=== PATIENT | female | born 1990 | race Caucasian/White ===

== ENCOUNTER 2018-01-04 21:33 | Emergency (ER) | payer BC ==
[2018-01-04] MEDS ORDERED: Sodium Chloride 0.9% 2.5 ML Syringe FLUSH PRN (21:53)
[2018-01-04] MEDS ORDERED: Ketorolac 30 MG/ML SDV IVPUSH ONE (21:53)
[2018-01-04] MEDS ORDERED: Sodium Chloride 0.9% 10 ML Syringe FLUSH PRN (21:53)
--- NOTE | 2018-01-04 21:58 | EDM.PDOC ---
ED HPI GENERAL MEDICAL PROBLEM - General Chief Complaint: Genitourinary Problem Stated Complaint: BACK AND STOMCH PAIN Time Seen by Provider: 01/04/18 21:45 - History of Present Illness INITIAL COMMENTS - FREE TEXT/NARRATIVE: HISTORY AND PHYSICAL: History of present illness: The patient is a 27 y/o female who presents with complaints of diffuse lower abdominal pain and lower back pain has been ongoing for a couple of days. The patient says that that she was seen in a walk-in clinic about 10 days or so ago for a sinus infection and she was given Cefdnir which she took for 7 days and although her sinus infection was not feeling better she stopped the antibiotics because she got a bad yeast infection. The patient says she used over-the- counter medications for the yeast infection and that has improved. She said over the last 2 days she has been having severe discomfort with urination and that there is burning at the and and she is concerned about a UTI. The discomfort in the lower abdomen and the lower back started with a urinary complaints. She has no flank pain no fevers but she has had chills and no nausea vomiting or upper abdominal pain. Today she did take 2 tablets of her antibiotics she thought it might help and her mother did give her a dose of Tylenol earlier. She is not taking any other medications for pain over the last few days. She says she feels uncomfortable due to the discomfort but does not localize right or left. She has no chest pain shortness of breath or upper respiratory symptoms. Patient tells me she is on oral control and denies . Patient also denies any vaginal discharge or vaginal pain at this moment Review of systems: As per history of present illness and below otherwise all systems reviewed and negative. Past medical history: As per history of present illness and as reviewed below otherwise noncontributory. Surgical history: As per history of present illness and as reviewed below otherwise noncontributory. Social history: No reported history of drug or alcohol abuse. Family history: As per history of present illness and as reviewed below otherwise noncontributory. Physical exam: General: Well-developed well-nourished female who is nontoxic and vital signs are reviewed by me. The patient looks uncomfortable sitting in a chair and she feels like she can't get comfortable. And she is squirming around but she is moving easily without distress HEENT: Atraumatic, normocephalic, negative for conjunctival pallor or scleral icterus, mucous membranes moist, throat clear, neck supple, nontender, trachea midline. Lungs: Clear to auscultation, breath sounds equal bilaterally, chest nontender. Heart: S1S2, regular rate and rhythm no overt murmurs Abdomen: Soft, nondistended, there is some mild tenderness with palpation of the lower abdomen without any focal area right or left and there is no rebound or guarding.. Negative for masses or hepatosplenomegaly. Negative for costovertebral tenderness. Pelvis: Stable nontender. Genitourinary: Deferred. Rectal: Deferred. Extremities: Atraumatic, negative for cords or calf pain. Neurovascular unremarkable. Neuro: Awake, alert, oriented. Cranial nerves II through XII unremarkable. Cerebellum unremarkable. Motor and sensory unremarkable throughout. Exam nonfocal. Back: There are no midline step-offs in his defects of the thoracic or lumbar spine no posterior pelvis or rib pain and no discrete one area of tenderness. When I palpate the lower back that is where she says it is uncomfortable but there is no CVA tenderness. Diagnostics: CBC CMP UA urine culture UCG lactic acid blood culture 2 Therapeutics: IV, Toradol IV fluids Levaquin I discussed with the patient and mother at bedside all testing results and have offered a CT scan to ascertain if there is any other renal abnormalities other than the pyelonephritis. At this point because she has no fever nausea or vomiting and she is feeling improved with the Toradol they would like to defer the CAT scan. I strongly advised him on reasons to return to the ED and will give a dose of Levaquin here and follow-up in our family practice clinic. Impression: Pyelonephritis Definitive disposition and diagnosis as appropriate pending reevaluation and review of above. Lower back pain Pain Score (Numeric/FACES): 10 - Related Data Allergies Allergy/AdvReac Type Severity Reaction Status Date / Time No Known Allergies Allergy Verified 01/04/18 21:45 Home Meds: Home Meds Norethindrone AC-Eth Estradiol [] 1 each PO DAILY 01/04/18 [History] Social & Family History - Family History Family Medical History: Noncontributory - Tobacco Use Smoking Status *Q: Never Smoker - Recreational Drug Use Recreational Drug Use: No ED ROS GENERAL - Review of Systems Review Of Systems: ROS reveals no pertinent complaints other than HPI. ED EXAM, GENERAL - Physical Exam Exam: See Below (see Dictation) Course - Vital Signs Last Recorded V/S: Last Vital Signs Temp 37.1 C 01/04/18 21:46 Pulse 103 H 01/04/18 21:46 Resp 16 01/04/18 21:46 BP 104/41 L 01/04/18 21:46 Pulse Ox 99 01/04/18 21:46 - Orders/Labs/Meds Orders: Active Orders 24 hr Category Date Time Status CULTURE BLOOD [BC] Stat Lab 01/04/18 22:52 Received CULTURE BLOOD [BC] Stat Lab 01/04/18 22:57 Received CULTURE URINE [RM] Stat Lab 01/04/18 21:42 Received Levofloxacin/Dextrose 5%-Water [Levaquin in D5W 500 MG/ Med 01/04/18 22:41 Active 100 ML] 500 mg Premix Bag 1 bag IV ONETIME Sodium Chloride 0.9% [Normal Saline] 1,000 ml Med 01/04/18 22:41 Active IV STAT Sodium Chloride 0.9% [Saline Flush] Med 01/04/18 21:53 Active 10 ml FLUSH ASDIRECTED PRN Sodium Chloride 0.9% [Saline Flush] Med 01/04/18 21:53 Active 2.5 ml FLUSH ASDIRECTED PRN Blood Culture x2 Reflex Set [OM.PC] Stat Oth 01/04/18 22:43 Ordered Saline Lock Insert [OM.PC] Stat Oth 01/04/18 21:52 Ordered Medication Orders Levofloxacin/Dextrose 500 mg/ (Premix) 100 mls @ 100 mls/hr IV ONETIME ONE Stop: 01/04/18 23:40 Last Admin: 01/04/18 23:01 Dose: 100 mls/hr Sodium Chloride (Normal Saline) 1,000 mls @ 999 mls/hr IV STAT ONE Stop: 01/04/18 23:41 Last Admin: 01/04/18 23:01 Dose: 999 mls/hr Sodium Chloride (Saline Flush) 10 ml FLUSH ASDIRECTED PRN PRN Reason: Keep Vein Open Last Admin: 01/04/18 22:13 Dose: 10 ml Sodium Chloride (Saline Flush) 2.5 ml FLUSH ASDIRECTED PRN PRN Reason: Keep Vein Open Last Admin: 01/04/18 22:13 Dose: 2.5 ml Labs: Laboratory Tests 01/04/18 01/04/18 01/04/18 Range/Units 21:42 21:54 22:12 WBC 17.28 H (4.0-11.0) K/uL RBC 4.30 (4.30-5.90) M/uL Hgb 13.0 (12.0-16.0) g/dL Hct 38.1 (36.0-46.0) % MCV 88.6 (80.0-98.0) fL MCH 30.2 (27.0-32.0) pg MCHC 34.1 (31.0-37.0) g/dL RDW Std Deviation 39.9 (28.0-62.0) fl RDW Coeff of Castro 12 (11.0-15.0) % Plt Count 222 (150-400) K/uL MPV 10.10 (7.40-12.00) fL Neut % (Auto) 74.9 (48.0-80.0) % Lymph % (Auto) 16.0 (16.0-40.0) % Routt % (Auto) 8.8 (0.0-15.0) % Eos % (Auto) 0.2 (0.0-7.0) % Baso % (Auto) 0.1 (0.0-1.5) % Neut # (Auto) 12.9 H (1.4-5.7) K/uL Lymph # (Auto) 2.8 H (0.6-2.4) K/uL Routt # (Auto) 1.5 H (0.0-0.8) K/uL Eos # (Auto) 0.0 (0.0-0.7) K/uL Baso # (Auto) 0.0 (0.0-0.1) K/uL Nucleated RBC % 0.0 /100WBC Nucleated RBCs # 0 K/uL Lactate (0.20-2.00) mmol/L Sodium (136-145) mmol/L Potassium (3.5-5.1) mmol/L Chloride (98-107) mmol/L Carbon Dioxide (21.0-32.0) mmol/L BUN (7.0-18.0) mg/dL Creatinine (0.6-1.0) mg/dL Est Cr Clr Drug Dosing mL/min Estimated GFR (MDRD) ml/min Glucose (74-106) mg/dL Calcium (8.5-10.1) mg/dL Total Bilirubin (0.2-1.0) mg/dL AST (15-37) IU/L ALT (14-63) IU/L Alkaline Phosphatase (46-116) U/L Total Protein (6.4-8.2) g/dL Albumin (3.4-5.0) g/dL Globulin (2.0-3.5) g/dL Albumin/Globulin Ratio (1.3-2.8) Urine Color YELLOW Urine Appearance CLOUDY Urine pH 6.5 (5.0-8.0) Ur Specific Blackwell 1.010 (1.001-1.035) Urine Protein 30 (NEGATIVE) mg/dL Urine Glucose (UA) NEGATIVE (NEGATIVE) mg/dL Urine Ketones NEGATIVE (NEGATIVE) mg/dL Urine Occult Blood LARGE H (NEGATIVE) Urine Nitrite NEGATIVE (NEGATIVE) Urine Bilirubin NEGATIVE (NEGATIVE) Urine Urobilinogen 0.2 (<2.0) EU/dL Ur Leukocyte Esterase MODERATE (NEGATIVE) Urine RBC 20-25 (0-2/HPF) Urine WBC 25-30 (0-5/HPF) Ur Epithelial Cells OCCASIONAL (NONE-FEW) Urine Bacteria 1+ H (NEGATIVE) Urine HCG, Qual NEGATIVE (NEGATIVE) 01/04/18 01/04/18 Range/Units 22:12 22:12 WBC (4.0-11.0) K/uL RBC (4.30-5.90) M/uL Hgb (12.0-16.0) g/dL Hct (36.0-46.0) % MCV (80.0-98.0) fL MCH (27.0-32.0) pg MCHC (31.0-37.0) g/dL RDW Std Deviation (28.0-62.0) fl RDW Coeff of Castro (11.0-15.0) % Plt Count (150-400) K/uL MPV (7.40-12.00) fL Neut % (Auto) (48.0-80.0) % Lymph % (Auto) (16.0-40.0) % Routt % (Auto) (0.0-15.0) % Eos % (Auto) (0.0-7.0) % Baso % (Auto) (0.0-1.5) % Neut # (Auto) (1.4-5.7) K/uL Lymph # (Auto) (0.6-2.4) K/uL Routt # (Auto) (0.0-0.8) K/uL Eos # (Auto) (0.0-0.7) K/uL Baso # (Auto) (0.0-0.1) K/uL Nucleated RBC % /100WBC Nucleated RBCs # K/uL Lactate 0.9 (0.20-2.00) mmol/L Sodium 138 (136-145) mmol/L Potassium 3.8 (3.5-5.1) mmol/L Chloride 103 (98-107) mmol/L Carbon Dioxide 24.4 (21.0-32.0) mmol/L BUN 11 (7.0-18.0) mg/dL Creatinine 0.9 (0.6-1.0) mg/dL Est Cr Clr Drug Dosing 95.55 mL/min Estimated GFR (MDRD) > 60.0 ml/min Glucose 98 (74-106) mg/dL Calcium 8.8 (8.5-10.1) mg/dL Total Bilirubin 0.2 (0.2-1.0) mg/dL AST 13 L (15-37) IU/L ALT 31 (14-63) IU/L Alkaline Phosphatase 58 (46-116) U/L Total Protein 6.8 (6.4-8.2) g/dL Albumin 3.6 (3.4-5.0) g/dL Globulin 3.2 (2.0-3.5) g/dL Albumin/Globulin Ratio 1.1 L (1.3-2.8) Urine Color Urine Appearance Urine pH (5.0-8.0) Ur Specific Blackwell (1.001-1.035) Urine Protein (NEGATIVE) mg/dL Urine Glucose (UA) (NEGATIVE) mg/dL Urine Ketones (NEGATIVE) mg/dL Urine Occult Blood (NEGATIVE) Urine Nitrite (NEGATIVE) Urine Bilirubin (NEGATIVE) Urine Urobilinogen (<2.0) EU/dL Ur Leukocyte Esterase (NEGATIVE) Urine RBC (0-2/HPF) Urine WBC (0-5/HPF) Ur Epithelial Cells (NONE-FEW) Urine Bacteria (NEGATIVE) Urine HCG, Qual (NEGATIVE) Meds: Medications Generic Name Dose Route Start Last Admin Trade Name Yordyq PRN Reason Stop Dose Admin Levofloxacin/Dextrose 500 mg/ 100 mls @ 100 mls/hr 01/04/18 22:41 01/04/18 23 :01 Premix IV 01/04/18 23:40 100 mls/hr ONETIME ONE Administration Sodium Chloride 1,000 mls @ 999 mls/hr 01/04/18 22:41 01/04/18 23:01 Normal Saline IV 01/04/18 23:41 999 mls/hr STAT ONE Administration Sodium Chloride 10 ml 01/04/18 21:53 01/04/18 22:13 Saline Flush FLUSH 10 ml ASDIRECTED PRN Administration Keep Vein Open Sodium Chloride 2.5 ml 01/04/18 21:53 01/04/18 22:13 Saline Flush FLUSH 2.5 ml ASDIRECTED PRN Administration Keep Vein Open Discontinued Medications Generic Name Dose Route Start Last Admin Trade Name Dena PRN Reason Stop Dose Admin Ketorolac Tromethamine 30 mg 01/04/18 21:53 01/04/18 22:13 Toradol IVPUSH 01/04/18 21:54 30 mg ONETIME ONE Administration Departure - Departure Time of Disposition: 23:03 Disposition: Home, Self-Care 01 Condition: Good Clinical Impression: Pyelonephritis - Discharge Information Referrals: PCP,None [Primary Care Provider] - Forms: ED Department Discharge Additional Instructions: The following information is given to patients seen in the emergency department who are being discharged to home. This information is to outline your options for follow-up care. We provide all patients seen in our emergency department with a follow-up referral. The need for follow-up, as well as the timing and circumstances, are variable depending upon the specifics of your emergency department visit. If you don't have a primary care physician on staff, we will provide you with a referral. We always advise you to contact your personal physician following an emergency department visit to inform them of the circumstance of the visit and for follow-up with them and/or the need for any referrals to a consulting specialist. The emergency department will also refer you to a specialist when appropriate. This referral assures that you have the opportunity for followup care with a specialist. All of these measure are taken in an effort to provide you with optimal care, which includes your followup. Under all circumstances we always encourage you to contact your private physician who remains a resource for coordinating your care. When calling for followup care, please make the office aware that this follow-up is from your recent emergency room visit. If for any reason you are refused follow-up, please contact the [facility] emergency department at and ask to speak to the emergency department charge nurse. [facility] Primary care- [place] [address] Push hydration and rest. Please call the clinic in the morning and schedule a follow-up in the family practice residency clinic or the family practice clinic as we discussed for reevaluation of the pyelonephritis as well as your concerns about other medical issues in the past. You can start your antibiotics tomorrow as you have received a dose of IV here that will last 2 for 24 hours. Please return to ER as needed and as we discussed. If the urine culture or blood cultures reveal anything that will change the care plan we will call you in the next few days. - My Orders Last 24 Hours: My Active Orders 01/04/18 21:42 CULTURE URINE [RM] Stat 01/04/18 21:52 Saline Lock Insert [OM.PC] Stat 01/04/18 21:53 Sodium Chloride 0.9% [Saline Flush] 10 ml FLUSH ASDIRECTED PRN Sodium Chloride 0.9% [Saline Flush] 2.5 ml FLUSH ASDIRECTED PRN 01/04/18 22:41 Levofloxacin/Dextrose 5%-Water [Levaquin in D5W 500 MG/100 ML] 500 mg Premix Bag 1 bag IV ONETIME Sodium Chloride 0.9% [Normal Saline] 1,000 ml IV STAT 01/04/18 22:43 Blood Culture x2 Reflex Set [OM.PC] Stat 01/04/18 22:52 CULTURE BLOOD [BC] Stat 01/04/18 22:57 CULTURE BLOOD [BC] Stat - Assessment/Plan Last 24 Hours: My Active Orders 01/04/18 21:42 CULTURE URINE [RM] Stat 01/04/18 21:52 Saline Lock Insert [OM.PC] Stat 01/04/18 21:53 Sodium Chloride 0.9% [Saline Flush] 10 ml FLUSH ASDIRECTED PRN Sodium Chloride 0.9% [Saline Flush] 2.5 ml FLUSH ASDIRECTED PRN 01/04/18 22:41 Levofloxacin/Dextrose 5%-Water [Levaquin in D5W 500 MG/100 ML] 500 mg Premix Bag 1 bag IV ONETIME Sodium Chloride 0.9% [Normal Saline] 1,000 ml IV STAT 01/04/18 22:43 Blood Culture x2 Reflex Set [OM.PC] Stat 01/04/18 22:52 CULTURE BLOOD [BC] Stat 01/04/18 22:57 CULTURE BLOOD [BC] Stat
[2018-01-04] MEDS ORDERED: Levofloxacin/Dextrose 5%-Water 500 MG in Premix Bag 1 BAG IV ONE (22:41)
[2018-01-04] MEDS ORDERED: Sodium Chloride 0.9% 1,000 ML IV ONE (22:41)
[2018-01-04 22:52] LABS: CHLORIDE,CL 103 mmol/L (98-107); SODIUM,NA 138 mmol/L (136-145)
== END 2018-01-05 00:05 | disposition home or self-care (01) ==
LOC: MW.ED 21:33
DX: N12 Tubulo-interstitial nephritis, not specified as acute or chronic (principal)
CPT/HCPCS: 36415; 80053; 81001; 81025; 83605; 85025; 87040; 87086; 87088; 87186; 96365; 96375; 99283; J1885; J1956; J7040